=== PATIENT | female | born 1935 | race Caucasian/White ===

== ENCOUNTER → 2023-06-01 12:04 | Outpatient (REF) | payer OTHER, SELFPAY | LOC: PAVMRI 12:04 | PROVIDERS: ATTENDING PHYSICIAN Physician Assistant; FAMILY PHYSICIAN Family Medicine | DX: M54.16 Radiculopathy, lumbar region (principal) | CPT/HCPCS: 72148 ==

== ENCOUNTER 2025-01-15 14:55 | Inpatient (IN) | payer OTHER, SELFPAY ==
[2025-01-15] VITALS (18 sets, daily range): BP systolic 111–170; BP diastolic 50–90; PULSE 93; O2SAT 90; BMI 16.1
[2025-01-15] MEDS: NSS 500 IV (12:30)
[2025-01-15 12:43] LABS: Hematocrit 33.5 % (37.0-47.0); Hemoglobin 11.4 g/dL (12.0-16.0); Mean Corp Hgb Conc. 34.0 g/dL (33.0-37.0); Mean Corpuscular Volume 87.0 fL (81.0-99.0); Platelet Count 324 10^3/uL (130-400); Red Cell Dist. Width 14.1 % (11.5-14.5)
[2025-01-15 12:50] LABS: ALT (SGPT) 14 U/L (0-35); AST (SGOT) 25 U/L (14-36); Albumin 3.6 g/dl (3.5-5.0); Alkaline Phosphatase 111 U/L (38-126); Blood Urea Nitrogen 17 mg/dl (7-17); Calcium 8.8 mg/dl (8.4-10.2); Carbon Dioxide 30 mmol/L (22-30); Estimated Creatinine Clearance 35 ml/min; Glucose 114 mg/dl (70-99); Potassium 3.9 mmol/L (3.5-5.1); Sodium 135 mmol/L (135-145); Total Protein 6.7 g/dl (6.3-8.2); eGFR > 60.00
[2025-01-15 12:56] LABS: Chloride 98 mmol/L (98-107)
--- NOTE | 2025-01-15 13:07 | ED.GENMED ---
History of Present Illness
General
Chief Complaint: Breathing Problem
Source: patient and family (daughter at bedside)
Exam Limitations: none
Time Seen by Provider: 01/15/25 11:52
Nursing documentation reviewed up to this point in time: agreed with
History of Present Illness
History of Present Illness:
89 yo female with a medical history of emphysema, Alzheimers disease, malnutrition, anemia, hypertension, anxiety, and vitamin D deficiency. Presenting with a new onset cough persisting for seven days, alongside decreased appetite, and general
reluctance to engage in daily activities. Daughter reports that the patient had a cold a week ago, with noticeable coughing and a significant drop in food intake, saying, 'She had soup last night and maybe a spoonful'. The patient has refused to
take medication, despite normally being on mirtazapine. Additionally, the patient is experiencing fatigue and inactivity, although no weakness, chest pain, shortness of breath, abdominal pain, urinary issues, constipation, diarrhea, or vomiting were
noted.
Pt denies headache, SOB, CP, abd. pain, n/v/d/c.
Past History
Past History
ED Past Medical History: Cancer (Skin CA), HTN, Hypercholesterolemia and Other (Anemia)
ED Past Surgical History: Appendectomy, Gynecological (Hysterectomy) and Other (MOHS)
Social History
Tobacco: Former smoker
Alcohol: None
Personal:
Living: with family
Family History
Family History: Negative Diabetes, Hypertension or CAD
Review of Systems
Review of Systems
Allergies reviewed?: Yes
All Other Systems: ROS reviewed and negative except as documented in HPI and ROS
Phy Exam
Physical Exam
Physical Exam:
GENERAL: No acute distress. A&O x 2 to name and '[facility].' 'Twenty something' for year
CONSTITUTIONAL: Afebrile.
EYES: clear, conjunctivae normal
ENMT: moist mucus membranes, Pharynx nl
RESPIRATORY: Regular respirations, nonlabored, lungs clear, diminished BS, frequent junky cough noted.
CARDIOVASCULAR: Regular rate and rhythm, no murmurs, no rubs.
GI: Soft, nontender, normal BS
MUSCULOSKELETAL: Moves with ease. Well perfused. No edema.
SKIN: Warm, dry, pale
PSYCH: Depressed mood and affect. Well kept, following commands, answering
NEUROLOGIC: Awake, alert and oriented. No focal neurological deficits
Scores
Heart Failure Risk
Heart Failure Risk Score: Not Applicable
Course
Orders/Labs/Results
Orders:
Orders
01/15/25 12:14
0.9% Sodium Chloride 500 ml [Nss] 500 ml IV BOLUS
01/15/25 12:15
CR Chest - 2 Views Urgent
Comment:
Reason For Exam: cough
01/15/25 12:25
Complete Blood Count/With Diff Urgent
Comprehensive Metabolic Panel Urgent
NT-proBNP Urgent
Comment: ADD ON
Urinalysis Reflex To Culture Urgent
Date Specimen was Collected: 01/15/25
Time Specimen was Collected: 12:16
Urine Microscopic Reflex Cult Urgent
Urine Culture Urgent
SHONA Source: U
Specimen Description:
Date Specimen was Collected: 01/15/25
Time Specimen was Collected: 12:16
01/15/25 13:13
Case Management Consult ONCE
Case Management Consult: Discharge Planning
Comment: Pt daughter not comfortable taking her home
Physical Therapy Consult [Pt Eval And Treat] Urgent
Treatment: ambulate with her cane
Activity Level: As Tolerated
01/15/25 13:26
COVID-19 Antigen Urgent
Source: Nasal Swab
Influenza A+B Rapid Molecular Urgent
SHONA Source: Nasal Swab
Specimen Description:
01/15/25 13:50
Dexamethasone Sod Phosphate [Decadron] 10 mg IV NOW STA
01/15/25 13:51
Ipratropium/Albuterol Sulfate [Duoneb] 3 ml INH R NOW STA
01/15/25 13:53
Add On- LAB Urgent
Tests Added?: BNP
Abnormal Lab Results
01/15/25
12:25
WBC 12.6 H 10^3/uL
(4.8-10.8)
RBC 3.85 L 10^6/uL
(4.20-5.40)
Hgb 11.4 L g/dL
(12.0-16.0)
Hct 33.5 L %
(37.0-47.0)
Abs Immat Gran (auto) 0.2 H 10^3/uL
(0-0.05)
Absolute Neuts (auto) 9.5 H 10^3/uL
(1.4-6.5)
Absolute Monos (auto) 1.5 H 10^3/uL
(0.1-0.6)
Immature Gran % 1.3 H %
(0-0.5)
Lymphocytes % 11.6 L %
(20.5-51.1)
Monocytes % 11.7 H %
(1.7-9.3)
Glucose 114 H mg/dl
(70-99)
Urine Ketones 2+ A
(Negative)
Ur Occult Blood Reflex 3+ A
(Negative)
Urine RBC 3-6 A /HPF
(0-2)
Urine Bacteria (Reflex) Moderate A
(Negative)
Urine Albumin (Reflex) 3+ A
(Neg - Trace)
01/15/25 12:25
01/15/25 12:25
Vital Signs
Initial and Last Documented VS:
Initial Vital Signs
Temp Pulse Resp BP Pulse Ox
98.0 F 98 20 149/82 92
01/15/25 11:43 01/15/25 11:43 01/15/25 11:43 01/15/25 11:43 01/15/25 11:43
Last Documented Vital Signs
Temp Pulse Resp BP Pulse Ox
98.6 F 88 20 159/81 91
01/15/25 12:31 01/15/25 12:31 01/15/25 12:31 01/15/25 12:31 01/15/25 13:08
MDM/Problems Addressed
Differential Diagnosis Includes:
Exacerbation of COPD, pneumonia, viral URI, COVID, flu
Dehydration, malnutrition, depression, medication noncompliance, cognitive decline, UTI
MDM/Problems Addressed:
89 yo female with a medical history of emphysema, Alzheimers disease, malnutrition, anemia, hypertension, anxiety, and vitamin D deficiency. Presenting with a new onset cough persisting for seven days, alongside decreased appetite, and general
reluctance to engage in daily activities. Daughter reports that the patient had a cold a week ago, with noticeable coughing and a significant drop in food intake, saying, 'She had soup last night and maybe a spoonful'. The patient has refused to
take medication, despite normally being on mirtazapine. Additionally, the patient is experiencing fatigue and inactivity, although no weakness, chest pain, shortness of breath, abdominal pain, urinary issues, constipation, diarrhea, or vomiting were
noted.
Pt denies headache, SOB, CP, abd. pain, n/v/d/c.
CBC, CMP unremarkable save for mild leukocytosis
Chest x-ray: Radiology report read: IMPRESSION:
On the frontal view, lungs have decreased respiratory excursion compared to previous chest radiograph, with resultant crowding of the basilar bronchovascular markings, most likely from atelectasis. No convincing evidence for consolidation/pneumonia.
Upper lungs appear hyperlucent suggesting COPD/emphysema.
If there are persistent clinical symptoms, consideration for follow-up radiography.
1:15 PM: Daughter called me out to the hallway to see a 'I just cannot take care of her anymore... She will eat, she is refusing to take her medications, she does nothing.' Potential direct care specialist stress.
Daughter lives in [place] and travels back and forth with her mother due to the fact that her mother does not want to sell her house. So they come down here and stay for a time and then go back up to [place].
Pt PCP record reviewed on daughter's phone, pt is Full Code.
Daughter also states 'there's a lot of stuff going on in the family.'
Pt drinking apple juice, states 'I don't know' when asked why she isn't eating or taking her medicine, then 'I'm just not hungry.' Asked if she was depressed, didn't answer, asked if she wants to or is ready to states: 'Well, I didn't have
that in mind,' and laughs. Daughter at bedside during this conversation.
Case Management and P/T eval ordered
1:45 PM: PT in: Agrees patient is not safe to go home
Case management in to speak with patient and daughter.
Patient pulse ox drops to 87% at times, on 2 L nasal cannula oxygen she drops to 88% with any activity even sitting up to sit on the side of the bed.
Plan: Admit exacerbation COPD
Hospitalist notified of admission
*Pulse Oximetry
SaO2: 91
Oxygen Mode of Delivery: Room air
Patient hypoxic: yes
*Critical Care Note
Total Time (30-74mins, 75-104mins- exclusive of procedures): Not Applicable
ED Attending Note
-
Portions of this chart may have been created with voice recognition software.� Occasional wrong word or��sound alike� substitutions may have occurred due to the inherent limitations of voice recognition software.
Discharge Plan
Departure
Patient Disposition: Admit
Date of Disposition: 01/15/25
Time of Disposition: 13:53
Admit to: Med/Surg
Presentation/result/management discussed w/ accepting MD/DO: Hospitalist
Patient with high blood pressure during this ER visit?: No
Condition: Fair
Covid-19: Negative COVID-19
Discharge Problem:
Acute exacerbation of chronic obstructive pulmonary disease
Prescriptions:
No Action
Theragen Tablet
1 tab PO DAILY
mirtazapine 7.5 mg Tablet
3.75 mg PO DAILY
Referrals:
UNKNOWN - PT DOES,NOT KNOW [Unknown Provider]
Interventions
Interventions:
*Risk Screen - Suicide Last Done: 01/15/25 11:43
*General Assessment Last Done: 01/15/25 11:43
*Neglect/Abuse Screening Last Done: 01/15/25 12:31
*ED- Fall Risk Assessment Last Done: 01/15/25 12:31
*ED COVID-19 Vaccine History Last Done: 01/15/25 11:43
*ED Influenza Vaccine History Last Done: 01/15/25 11:43
ED- Cardiac Assessment Last Done: 01/15/25 12:31
ED- Pulmonary Assessment Last Done: 01/15/25 12:31
Discharge Date and Time
Print Language: KAZAKH
[2025-01-15 13:25] LABS: Nucleated Red Blood Cells % 0 %
[2025-01-15 13:33] LABS: Urine Character Clear (Clear)
--- NOTE | 2025-01-15 13:39 | EDRN ---
physical therapy currently at the pts bedside
[2025-01-15 13:43] LABS: Urine Urothelial Cell 0-2 /LPF (FEW)
[2025-01-15 13:48] LABS: COVID-19 Antigen Negative (Negative)
--- NOTE | 2025-01-15 13:50 | EDRN ---
case management currently at the pts bedside
--- NOTE | 2025-01-15 14:01 | CM ---
Addendum entered by Mag Sterling 01/15/25 14:11:
OBS Letter issued.
Original Note:
Initial assessment completed with daughter and pt at bedside.
Pt is an 89yr old female who came to the ER with her daughter for new onset cough and general loss of appetite and engagement in daily activities. Pt with dementia/Alzheimers.
Pt has home in [place], though lives primarily with her daughter in [place].
Pts home in [place] is [address] then an additional 2 steps to the main living area. Daughters home is a split level, though daughter says she can enter through the back that is 3ste and be on 1 floor.
Per daughter, at baseline, pt is indep with bed mobility and walking short distances with the use of a cane. Per daughters report, over the past week, daughter has had to provide increased assistance and supervision with all tasks.
Equipment pt has includes, cane, RW, shower chair, and commode.
PT eval conducted and recommendation is SNF. Daughter agreeable. Pt has been to [place] and daughter would like referral sent there as well as the facilities surrounding.
PCP; Milton Herrera
Pharm; [facility]
PLAN; SNF; Referrals Sent to [facility], and [facility]
--- NOTE | 2025-01-15 14:05 | HPS.HSE ---
Addendum entered and electronically signed by Jesse Delgado MD 01/15/25 15:24:
This is an addendum to the H&P written by Erendira Griffin on 01/15/2025. �Patient seen and examined independently with JUTE BAG CUTTING MACHINE OPERATOR.
89-year-old female past medical history of COPD, dementia, anemia of chronic disease, hypertension, presenting with cough and shortness of breath for 7 days. �Patient had cold a week ago with decreased p.o. Intake and hoarse voice. �Also fatigue.
�No chest pain or�abdominal pain or urinary issues or GI problems.
Vital signs show hypoxemia to 89%.
Labs show leukocytosis of 12.6. �Stable anemia of 11.4.
Chest x-ray shows atelectasis without consolidation or pneumonia. �Hyperlucent lungs suggesting COPD/emphysema. �COVID and flu negative.
Patient with acute COPD exacerbation secondary to viral URI. �DuoNefinesse, kelton.
Original Note:
Family Physician
-
Family Physician: NAOMI NEGRON,
Chief Complaint
-
Shortness of breath, hypoxia
History of Present Illness
89-year-old female with cough over the past 7 days decreased appetite. Her daughter reported she had a cold a week ago with cough and decreased oral intake along with refusing to take her medication. She reports she has had increased fatigue and
inactivity. She denies fever, chills, chest pain, palpitations, abdominal pain, nausea, vomiting, diarrhea, urinary symptoms. Her daughter Irene states she was 120.4 pounds on December 05 at her PCP according to note on her phone. She reports she
was seen there due to falling off the toilet and hitting her head. She is currently 99 pounds with a weight loss of 21 pounds in the past 5 weeks. She refuses to eat or take any of her medications likely due to progressive Alzheimer's. Her
daughter states she was due to leave for vacation on Sunday to [place] for 1 month she did have plans to take her mother with and drive however is interested in starting process of possible placement. She has past medical history of former smoker,
COPD/emphysema, Alzheimer's, HTN, HLD, anemia, anxiety, vitamin D deficiency, chronic cachexia, lumbar compression fracture L1, chronic ambulatory dysfunction
Medical History
Past Medical History
Past Medical History: Reports Other (Advanced dementia, chronic cachexia gastric ulcer hemorrhage 8 years ago secondary to aspirin, dementia, HTN, HLD, chronic anemia, chronic ambulatory dysfunction uses walker at baseline)
Past Surgical History: Reports Other (Appendectomy age 14, hysterectomy 50s, Mohs procedure)
Social History
Tobacco: Non-smoker
Alcohol: None
Drug: None
Personal: (January 2024)
Living: With Family (Daughter Irene in [place] and at patient's house in [place])
Employment: Retired
Family History
Family History: Unable to Obtain
Allergies / Home Medications
Allergies reflects when Allergies were last updated in [facility].
Home Medications with original date entered in [facility]
Allergy/Medication List:
Allergies
Allergy/AdvReac Type Severity Reaction Status Date / Time
No Known Allergies Allergy Verified 01/15/25 11:46
Home Medications
mirtazapine 7.5 mg tablet 3.75 mg PO HS Mental Health/Anxiety 01/15/25
therapeutic multivitamin 1 tab PO DAILY Supplement 01/15/25
Review of Systems
-
History Source: Patient and Family (Irene)
A 12 point ROS was completed and negative except as noted: Yes
Constitutional: Reports Fatigue; Denies Fever or Chills
EENT: Denies Sore Throat or Runny Nose
Respiratory: Reports Cough (Productive) and Trouble Breathing
Cardiac: Denies Chest Pain, Diaphoresis or Syncope
Abdomen/GI: Denies Abdominal Pain, Nausea, Vomiting, Diarrhea, Constipated or Bloody Stools
: Denies Dysuria or Frequency
Musculoskeletal: Denies Joint Pain or Edema
Skin: Denies Itching or Rash
Neurological: Reports Weakness; Denies Dizzy or Headache
Endocrine: Reports No Symptoms
Hematologic/Lymphatic: Reports No Symptoms
Psych: Reports Calm
Physical Exam
Vital Signs
Vital Signs
Temp Pulse Resp BP Pulse Ox
98.6 F 88 20 159/81 91
01/15/25 12:31 01/15/25 12:31 01/15/25 12:31 01/15/25 12:31 01/15/25 13:08
Physical Exam
General: No Fever or Chills
HEENT: NormoCephalic, Anicteric, Moist mucous membranes, PERRLA, Dennis Conjunctivae and No Ptosis
Respiratory: Wheezes (Expiratory bilateral); No Rales or Rhonchi
Cardiac: S1/S2 and Regular Rhythm; No Murmur, Rub, Gallop or Peripheral Edema
GI: Soft, Non Tender, Non Distended, Normal Bowel Sounds and No Hepatosplenomegaly
Rectal: Deferred by Provider
Genito-urinary: Deferred by me
Musculoskeletal: No Clubbing, No Cyanosis and No Edema
Skin: Warm and Dry; No Rash
Neuro: Awake, Alert, Oriented (To name and daughter only can follow commands) and No Sensory Deficits; No Slurred Speech, Facial Droop, Tremors or Sedated
Psych: Calm
Laboratory Results
-
01/15/25 12:25
01/15/25 12:25
Laboratory Results
Total Bilirubin 0.8 mg/dl (0.2-1.3) 01/15/25 12:25
AST 25 U/L (14-36) 01/15/25 12:25
ALT 14 U/L (0-35) 01/15/25 12:25
Alkaline Phosphatase 111 U/L (38-126) 01/15/25 12:25
Impression/Plan
-
Impression/plan:
Admit to MedSurg
#Acute on chronic COPD exacerbation following URI
Acute hypoxic respiratory insufficiency secondary to COPD exacerbation
89%-90 2 L nasal cannula
COVID/influenza negative
- IV Decadron 10 mg now, continue Decadron 4 mg every 8 hours
-DuoNebs scheduled and as needed
-Will need walking pulse ox to determine if needs O2 at home
-PT/OT/case management consult�daughter interested in starting process of possible NH placement
#Progressive Alzheimer's with Weight loss
Weight loss of 21 pounds in past 5 weeks refusal to eat or take meds
PCP has tried prescribing Megace but patient refuses medications
- Dietary consult
#Anxiety
Daughter gives 3.75 mg of mirtazapine in a.m. to help with repetitive speaking/obsessiveness
#HTN�benign
BP 159/81
No current medication
#HLD
- Patient refuses meds
#History of lung compression fracture 2022
#Chronic ambulatory dysfunction
Consult PT/ot
#History of vitamin D deficiency
DVT prophylaxis
Subcu heparin
DNR per daughter Irene
[2025-01-15] MEDS: DECADRON 10 MG IV (14:17)
[2025-01-15] MEDS: DUONEB 3 ML INH (14:18)
--- NOTE | 2025-01-15 16:57 | EDRN ---
this RN called the receiving nurse and notified them that paper report was going to be tubed up
--- NOTE | 2025-01-15 17:10 | EDRN ---
this RN noticed that the pts p02 on 2L NC was dipping to the 80's then to 75%, this RN entered the pts room and notified Erendira Griffin FLIGHT TECHNICIAN who came to the pts bedside, this RN titrated 02 up to 6L NC, the pt was sleeping and was seen to have left
sided facial droop, an inpatient stroke alert was called and Dr. Delgado came to the bedside as well, left sided facial droop was the only deficit noted, pt taken to CT by this RN
[2025-01-15 17:23] LABS: Glucose - Point of Care 140 mg/dl (70-99)
--- NOTE | 2025-01-15 17:49 | EDRN ---
respiratory currently at the pts bedside drawing ABG, the pt is currently still on 6L NC and Sp02 is 98%, no c/o SOB
[2025-01-15 17:57] LABS: B.E. 5.1 mmol/L; HCO3 29.0 mmol/L (21-28); O2 Saturation % 99.7 % (94-98); PCO2 39 mmHg (32-35); PO2 111 mmHg (83-108)
--- NOTE | 2025-01-15 18:06 | W.PN.UPDATE ---
Update Note
Progress Note Update
Acute hypoxia concern for CO2 retention/possible underlying sleep apnea
left-sided facial droop concern for possible TIA/CVA versus hypoxia�self resolved
At 1711 patient noted to be hypoxic 75% with good pleth wave on monitor when found in room appeared to have left facial droop was dizzy tongue stuck at midline
O2 6 L nasal cannula was applied
-stroke alert was called
- Symptoms resolved within 2 minutes
- CT head negative
- ABG -pH 7.48 CO2 39, O2 111, CO 39 on 6 L nasal cannula
- Will decrease nasal cannula to 2 L maintain O2 sat 90%
- Will use a CPAP setting of 5 when patient is sleeping as suspect possible underlying sleep apnea
--- NOTE | 2025-01-15 18:33 | EDRN ---
per Erendira Griffin SUBSTITUTE BUS DRIVER 02 was decreased from 6L to 2L NC, Sp02 96%, admission order changed from Med surg to Tele, will await for a bed
[2025-01-15] MEDS: HEPARIN 5000 UNITS SC (20:22)
--- NOTE | 2025-01-15 20:54 | PTCARENOTE ---
patient arrived from ED via stretcher. patient pulled over into bed by staff. patient AOx1, oriented to self. tele monitor placed. assessment completed. oriented patient to room. bed alarm in place. DNR bracelet placed. POC ongoing.
[2025-01-15] MEDS: DECADRON 4 MG IV (21:18)
[2025-01-15] MEDS: REMERON 3.75 MG PO (21:19)
[2025-01-15] MEDS: DUONEB INH ×2 (21:35→21:38)
[2025-01-16] VITALS (9 sets, daily range): BP systolic 104–132; BP diastolic 58–71; PULSE 107–113; O2SAT 96; BMI 18.2
--- NOTE | 2025-01-16 00:30 | PTCARENOTE ---
respiratory rate 26 at 2300 VS. LIYAH Low notified. no new orders received. POC ongoing.
[2025-01-16] MEDS: DECADRON 4 MG IV ×3 (05:25→20:34)
[2025-01-16 06:36] LABS: Hematocrit 32.2 % (37.0-47.0); Hemoglobin 10.9 g/dL (12.0-16.0); Mean Corp Hgb Conc. 33.9 g/dL (33.0-37.0); Mean Corpuscular Volume 87.5 fL (81.0-99.0); Nucleated Red Blood Cells % 0 %; Platelet Count 341 10^3/uL (130-400); Red Cell Dist. Width 14.1 % (11.5-14.5)
[2025-01-16 07:12] LABS: ALT (SGPT) 13 U/L (0-35); AST (SGOT) 21 U/L (14-36); Albumin 3.4 g/dl (3.5-5.0); Alkaline Phosphatase 116 U/L (38-126); Blood Urea Nitrogen 21 mg/dl (7-17); Calcium 9.0 mg/dl (8.4-10.2); Carbon Dioxide 27 mmol/L (22-30); Chloride 103 mmol/L (98-107); Estimated Creatinine Clearance 39 ml/min; Glucose 129 mg/dl (70-99); Potassium 4.1 mmol/L (3.5-5.1); Sodium 138 mmol/L (135-145); Total Protein 6.4 g/dl (6.3-8.2); eGFR > 60.00
[2025-01-16] MEDS: DUONEB 3 ML INH ×3 (07:15→14:54)
[2025-01-16] MEDS: THERAGRAN 1 TABLET PO (08:26)
[2025-01-16] MEDS: HEPARIN 5000 UNITS SC ×2 (08:26→20:35)
[2025-01-16] MEDS: TYLENOL 650 MG PO (08:26)
--- NOTE | 2025-01-16 09:53 | W.PN.HOSP.TC ---
Addendum entered and electronically signed by Ty Fernandez MD 01/16/25 13:41:
Attending�addendum:
I saw and evaluated the patient independently. I reviewed and discussed the resident�s note and agree with findings and plan as documented in the resident�s note.� patient seen and examined at bedside, later spoke with daughter at bedside, patient
admitted yesterday with concern of COPD exacerbation, recent upper respiratory tract infection.
Physical�exam:
GENERAL : Patient is awake, but not fully oriented.
HEENT: Nonicteric sclerae, PERRLA, EOMI. Oropharynx clear. Moist mucous membranes. Conjunctivae appear well perfused.
CHEST: Chest wall is nontender.
HEART: Regular rate and rhythm without murmurs.
LUNGS: Bilateral rales
ABDOMEN: Soft, positive bowel sounds, nontender, no organomegaly.
RECTAL: Deferred.
MUSCLES/EXTREMITIES: No abnormal range of motion, no swelling.SKIN: No rash, no excessive bruising, petechiae, or purpura.
NEUROLOGIC: Cranial nerves II-XII intact without motor/sensory deficit.
�
Assessment/plan:
Acute on chronic COPD exacerbation.
Rule out underlying pneumonia.
CT chest pending.
Continue DuoNebs and dexamethasone
For home oxygen before discharge
Alzheimer dementia
Mild leukocytosis, rule out underlying sepsis
Ambulatory dysfunction.
PT/OT,
CODE STATUS: DNR
Family communication: Discussed with daughter at bedside
Disposition: CT chest
�
Total time spent on today�s encounter was 55 minutes which included time spent in counseling the patient/family regarding diagnosis and treatment plan as listed above, goals of care, and symptom management. Case was discussed with nursing staff,
specialists, and care coordinators/case management. All labs and imaging personally reviewed by me. Remainder the time spent in detailed review of previous records, lab data, imaging, and other medical provider documentation.
Original Note:
Today's Communication/Plan
-
- Monitor CBC for mild leukocytosis
- PT/OT/case management
- Continue DuoNebs, dexamethasone
Assessment / Plan
Assessment / Plan
Patient is an 89-year-old female who presented with shortness of breath and cough duration of 7 days with decreased p.o. intake
#Acute on chronic exacerbation of COPD
- In setting of recent URI as per daughter
- Requiring 2 L nasal cannula
- COVID and flu negative
- DuoNebs as needed
- Dexamethasone
#Progressive Alzheimer's associated with weight loss
- Patient lost 21 pounds in 5 weeks
- Patient refusing home p.o. medications per daughter
- Dietary consult
#Mild leukocytosis
- WBC 12.6 yesterday, 11.8 today
- Chest x-ray in ED showing decreased respiratory exertion compared to previous chest radiograph with resultant crowding of the bibasilar parenchymal vascular markings most likely from atelectasis, and upper lungs appear hyperlucent suggesting
COPD/emphysema
- Nursing reported patient having afebrile chills over night
- Continue to monitor CBC
#Ambulatory dysfunction
-PT/OT consult
#Anxiety
- Continue mirtazapine
#Hypertension
- Currently not on medication at home
- BP 119/66 this morning
#Hyperlipidemia
- Currently not on medication at home
Anticipated Discharge: 24 - 48 hours
Subjective/Interval History
-
Date of Service: January 16, 2025
Patient seen this morning at bedside. Patient breakfast in front of her house trying to drink her coffee with a spoon. Patient stated that she was doing fine, but could not remember why she was in the hospital. When asking review of systems,
patient would just state that she did not know. She currently denied any shortness of breath or chest pain. Patient denies any pain.
Objective Data
-
Labs:
Laboratory Results
01/16/25
06:16
WBC 11.8 H
Hgb 10.9 L
Hct 32.2 L
Plt Count 341
Sodium 138
Potassium 4.1
Chloride 103
Carbon Dioxide 27
BUN 21 H
Creatinine 0.8
Glucose 129 H
Calcium 9.0
Total Bilirubin 0.4
AST 21
ALT 13
Alkaline Phosphatase 116
Vital Signs:
Vital Signs
Temp Pulse Resp BP Pulse Ox
97.8 F 64 18 119/66 98
01/16/25 07:13 01/16/25 07:16 01/16/25 07:16 01/16/25 07:13 01/16/25 07:16
I&O
01/15/25 01/16/25 01/17/25
06:59 06:59 06:59
Output Total 1000 / 1000
Balance -1000 / -1000
Review of Systems
-
Unable to obtain full review of systems at this time due to: Dementia
Respiratory: Reports No Symptoms
Cardiac: Reports No Symptoms
Physical Exam
-
General: No Apparent Distress
Respiratory: Wheezes (expiratory)
Cardiac: Regular Rhythm
GI: Soft, Nontender and Nondistended
Skin: Warm and Dry
Neuro: Awake, Alert and Oriented
Psych: Calm
--- NOTE | 2025-01-16 10:00 | PTCARENOTE ---
Pt displayed increased generalized tremors and stated, 'I am so cold'. Pt covered in blankets. No elevated temperature, temp=98.5. made aware.
--- NOTE | 2025-01-16 15:49 | PN.CDI ---
CDI
- -
CDI:
Physician Documentation Request
Admit Date: 01/15/25 14:55
Dear Doctor Rebecca/Resident ,
Please review the following and provide your response in the progress notes.
Clinical Indicators:
Pt admitted with COPD exacerbation
Progress note 01/16, ' #Progressive Alzheimer's associated with weight loss Patient lost 21 pounds in 5 weeksPatient refusing home p.o. medications per daughter...'
Nutrition consult 01/16, ' Per admission list pt with 14-23 lb weight loss (score 5). Records show weight of 112 lbs 14.4 oz on 01-16 (BMI 18.2-underwt); per MD notes from family pt was 120.4 lbs on December 05, 2024 MD office (would reflect a loss
of 8 lbs, 6.6% wt change, ~5.5 weeks). Pt in chair after lunch today during RD visit; tray observed with chocolate pudding consumed. Would encourage and assist pt if needed to try meals, snacks daily as tolerated. Estimated needs: 1272 calories (25
kcal/kg/112 lbs/COPD), 61 gms protein (1.2 gm/kg/COPD). Pt observed to have appearance of moderate depression at temples, orbital, clavicle and ribs. Per family to MD, pt with a 'significant drop in food intake' prior to admission. RD to add
fortified pudding at lunch and dinner via [facility] menu. Pt currently meeting criteria for moderate protein-calorie malnutrition as per ASPEN/AND guidelines, chronic illness. Follow-up planned per level of care during hospitalization.'
Based on the above information and your assessment, which of the following most accurately represents the patient's nutritional status?
Moderate protein calorie Malnutrition
Other (please specify)
[place] Criteria (ACP Hospitalist 2017)
2 or more criteria must be present for either
non severe or severe malnutrition
Note that the criteria differs related to the
presence of an acute or chronic illness
Acute Illness Chronic Illness
Energy Intake Non Severe: <75% for >7 days Non Severe: <75% for >1 month
Severe: <50% for >5 days Severe: <75% for >1 month
Weight Loss Non Severe: 1-2% over 1 week Non Severe: 5% over 1 month
5% over 1 month 7.5% over 3 months
7.5% over 3 months 10% over 6 months
1 year N/A 20% over 1 year
Severe: >2% over 1 week Severe: >5% over 1 month
>5% over 1 month >7.5% over 3 months
>7.5% over 3 months >10% over 6 months
1 year N/A >20% over 1 year
Body Fat Non Severe: Mild Decrease Non Severe: Mild Loss
Severe: Moderate Decrease Severe: Severe Loss
Muscle Mass Non Severe: Mild Decrease Non Severe: Mild Loss
Severe: Moderate Decrease Severe: Severe Loss
Fluid Accumulation Non Severe: Mild Accumulation Non Severe: Mild Accumulation
Severe: Moderate to severe Severe: Moderate to severe
accumulation accumulation
Reduced [employer] Strength Non Severe: N/A Non Severe: N/A
Severe: Measurably reduced Severe: Measurably reduced
Use of terms such as suspected, likely, concern for, or probable (associated with a specific diagnosis that is being evaluated, monitored, or treated as if it exists) are acceptable and can be coded in the inpatient setting, when documented at the
time of discharge.
Thank you,
Peri Rothman RN
CDI Specialist
[place] [facility]
Please use your independent medical judgment in providing your response.
--- NOTE | 2025-01-16 16:41 | PTCARENOTE ---
At 15:40, environmental monitoring specialist alarmed, pt tachycardic, nf=554's-140's. Pt sitting in chair, anxious, otherwise asymptomatic. Blood pressure rechecked at 16:00, 115/64 hr 122. ECG ordered and obtained, displayed sinus tachycardia, HR 122, photo of ecg
sent to via tiger text. informed that HR on environmental monitoring specialist is continuing to display HR 110's-120's. New order provided, see MAR.
--- NOTE | 2025-01-16 17:35 | PTCARENOTE ---
HR continues to be 100's-110's. made aware.
--- NOTE | 2025-01-16 18:15 | PTCARENOTE ---
HR 110's, resident made aware, resident at bedside. Pt asymptomatic. BP stable.
[2025-01-16] MEDS: REMERON 3.75 MG PO (20:36)
[2025-01-16] MEDS: ROCEPHIN 1000 MG IV (21:51)
[2025-01-16] MEDS: VIBRAMYCIN 100 MG PO (21:51)
[2025-01-16] MEDS: STERILE WATER FOR INJECTION 10 ML IV (21:52)
[2025-01-17 03:49] VITALS: BP 113/63
[2025-01-17 04:52] VITALS: BMI 18.3
[2025-01-17] MEDS: DECADRON 4 MG IV ×3 (05:56→21:31)
[2025-01-17 07:00] VITALS: BP 102/67
[2025-01-17 07:14] LABS: ALT (SGPT) 14 U/L (0-35); AST (SGOT) 22 U/L (14-36); Albumin 3.1 g/dl (3.5-5.0); Alkaline Phosphatase 110 U/L (38-126); Blood Urea Nitrogen 48 mg/dl (7-17); Calcium 8.9 mg/dl (8.4-10.2); Carbon Dioxide 28 mmol/L (22-30); Chloride 103 mmol/L (98-107); Estimated Creatinine Clearance 24 ml/min; Glucose 141 mg/dl (70-99); Potassium 3.8 mmol/L (3.5-5.1); Sodium 137 mmol/L (135-145); Total Protein 5.9 g/dl (6.3-8.2); eGFR 39.55
[2025-01-17 07:40] LABS: Hematocrit 29.2 % (37.0-47.0); Hemoglobin 9.9 g/dL (12.0-16.0); Mean Corp Hgb Conc. 33.9 g/dL (33.0-37.0); Mean Corpuscular Volume 88.0 fL (81.0-99.0); Platelet Count 390 10^3/uL (130-400); Red Cell Dist. Width 14.3 % (11.5-14.5)
[2025-01-17] MEDS: HEPARIN 5000 UNITS SC ×2 (08:30→20:31)
[2025-01-17] MEDS: VIBRAMYCIN 100 MG PO ×2 (08:31→20:32)
[2025-01-17] MEDS: THERAGRAN 1 TABLET PO (08:31)
[2025-01-17 08:42] LABS: Absolute Neutrophils -Man Diff 21.2 10^3/uL (1.4-6.5); Anisocytosis Slight; Normal RBC Morphology No; Platelets Checked Yes
[2025-01-17 08:43] LABS: Ovalocytes 1+; Polychromasia 1+; Target Cells 1+; Total Cells Counted 100
--- NOTE | 2025-01-17 09:41 | W.PN.HOSP.TC ---
Addendum entered and electronically signed by Ty Fernandez MD 01/17/25 12:41:
Moderate protein calorie Malnutrition
Addendum entered and electronically signed by Ty Fernandez MD 01/17/25 11:41:
Attending�addendum:
I saw and evaluated the patient independently. I reviewed and discussed the resident�s note and agree with findings and plan as documented in the resident�s note.� patient seen and examined at bedside, shortness of breath improved.
CT scan shows pneumonitis/bronchitis.
Started on IV antibiotics.
Worsening creatinine, started on IVF
Physical�exam:
GENERAL : Patient is awake, but not fully oriented.
HEENT: Nonicteric sclerae, PERRLA, EOMI. Oropharynx clear. Moist mucous membranes. Conjunctivae appear well perfused.
CHEST: Chest wall is nontender.
HEART: Regular rate and rhythm without murmurs.
LUNGS: Bilateral rales
ABDOMEN: Soft, positive bowel sounds, nontender, no organomegaly.
RECTAL: Deferred.
MUSCLES/EXTREMITIES: No abnormal range of motion, no swelling.SKIN: No rash, no excessive bruising, petechiae, or purpura.
NEUROLOGIC: Cranial nerves II-XII intact without motor/sensory deficit.
�
Assessment/plan:
Acute on chronic COPD exacerbation.
Pneumonitis/bronchitis.
Started on Rocephin/Doxy psych
Continue DuoNebs and dexamethasone
Ambulatory pulse ox on exertion.
Sepsis with organ dysfunction.
Secondary to bronchitis.
Organ dysfunction in form of acute kidney injury.
Continue antibiotic
Acute kidney injury.
Baseline 0.8.
Creatinine 1.3.
IV fluid.
Avoid nephrotoxic
Alzheimer dementia
at baseline
Ambulatory dysfunction.
PT/OT,
CODE STATUS: DNR
Family communication: Discussed with daughter at bedside
Disposition: Ambulatory pulse ox on exertion.
IVF
�
Total time spent on today�s encounter was 55 minutes which included time spent in counseling the patient/family regarding diagnosis and treatment plan as listed above, goals of care, and symptom management. Case was discussed with nursing staff,
specialists, and care coordinators/case management. All labs and imaging personally reviewed by me. Remainder the time spent in detailed review of previous records, lab data, imaging, and other medical provider documentation
Original Note:
Today's Communication/Plan
-
- Continue antibiotics
- Trend WBC
- O2 on exertion today
- Continue DuoNebs as needed and dexamethasone
- Cr 1.3 from 0.8, will start IV fluids
Assessment / Plan
Assessment / Plan
Patient is an 89-year-old female who presented with shortness of breath and cough duration of 7 days with decreased p.o. intake
#Acute on chronic exacerbation of COPD
- In setting of recent URI as per daughter
- Requiring 2 L nasal cannula
- COVID and flu negative
- DuoNebs changed to as needed
- Dexamethasone
# Progressive Alzheimer's associated with weight loss
# Moderate protein calorie Malnutrition
- Patient lost 21 pounds in 5 weeks
- Patient refusing home p.o. medications per daughter
- Dietary consult
#Mild to moderate leukocytosis, worsening
- WBC 11.8 yesterday, 25.0 today
- In setting of steroids
- Chest x-ray in ED indicating findings of atelectasis and suggestive of COPD/emphysema
- Chest CT 01/08 indicating findings of areas of nodular opacity scattered to the lungs, greatest in the right upper lobe. Airway pneumonitis, bronchitis
- Started patient on Rocephin and doxycycline
- Continue to monitor CBC
#Acute kidney injury
- Cr 1.3 today, 0.8 on admission
- Will start fluids, normal saline
#Ambulatory dysfunction
-PT/OT consult
#Anxiety
- Continue mirtazapine
#Hypertension
- Currently not on medication at home
- BP 119/66 this morning
#Hyperlipidemia
- Currently not on medication at home
Anticipated Discharge: 24 - 48 hours
Subjective/Interval History
-
Date of Service: January 17, 2025
Patient seen at the bedside today, drinking coffee. Patient states that she 'thinks' she feels fine, and denies all review of systems. Patient seen more confused this morning, unsure where she was.
Objective Data
-
Labs:
Laboratory Results
01/17/25
06:24
WBC 25.0 H
Hgb 9.9 L
Hct 29.2 L
Plt Count 390
Sodium 137
Potassium 3.8
Chloride 103
Carbon Dioxide 28
BUN 48 H
Creatinine 1.3 H
Glucose 141 H
Calcium 8.9
Total Bilirubin 0.2
AST 22
ALT 14
Alkaline Phosphatase 110
Vital Signs:
Vital Signs
Temp Pulse Resp BP Pulse Ox
98.4 F 71 18 102/67 99
01/17/25 07:00 01/17/25 07:00 01/17/25 07:00 01/17/25 07:00 01/17/25 07:00
I&O
01/16/25 01/17/25 01/18/25
06:59 06:59 06:59
Intake Total 930 / 930
Output Total 1000 / 1000
Balance -1000 / -1000 930 / 930
Review of Systems
-
Unable to obtain full review of systems at this time due to: Dementia
Physical Exam
-
General: No Apparent Distress and Comfortable
HEENT: Moist Mucous Membranes
Respiratory: Clear to Auscultation
Cardiac: Regular Rhythm
GI: Soft, Nontender and Nondistended
Musculoskeletal: No Edema
Skin: Warm and Dry
Neuro: Awake and Alert
Psych: Calm and Confused
[2025-01-17 11:05] VITALS: BP 137/76
[2025-01-17] MEDS: NSS 1000 IV (14:05)
[2025-01-17 15:00] VITALS: BP 150/81
[2025-01-17 19:50] VITALS: BP 130/80
[2025-01-17] MEDS: STERILE WATER FOR INJECTION 10 ML IV (21:28)
[2025-01-17] MEDS: ROCEPHIN 1000 MG IV (21:28)
[2025-01-17] MEDS: REMERON 3.75 MG PO (21:40)
[2025-01-17 23:21] VITALS: BP 145/79
[2025-01-18 03:07] VITALS: BP 136/77
[2025-01-18 03:16] VITALS: BMI 16.6
[2025-01-18] MEDS: DECADRON 4 MG IV (06:17)
[2025-01-18 07:00] VITALS: BP 160/80
[2025-01-18 07:01] LABS: Hematocrit 32.1 % (37.0-47.0); Hemoglobin 10.9 g/dL (12.0-16.0); Mean Corp Hgb Conc. 34.0 g/dL (33.0-37.0); Mean Corpuscular Volume 88.2 fL (81.0-99.0); Platelet Count 418 10^3/uL (130-400); Red Cell Dist. Width 14.4 % (11.5-14.5)
[2025-01-18 07:15] LABS: Blood Urea Nitrogen 49 mg/dl (7-17); Calcium 9.0 mg/dl (8.4-10.2); Carbon Dioxide 27 mmol/L (22-30); Chloride 106 mmol/L (98-107); Estimated Creatinine Clearance 29 ml/min; Glucose 113 mg/dl (70-99); Potassium 4.3 mmol/L (3.5-5.1); Sodium 139 mmol/L (135-145); eGFR 54.19
[2025-01-18] MEDS: THERAGRAN 1 TABLET PO (07:49)
[2025-01-18] MEDS: VIBRAMYCIN 100 MG PO (07:49)
[2025-01-18] MEDS: HEPARIN 5000 UNITS SC (07:50)
[2025-01-18] MEDS: NSS 1000 IV (07:51)
[2025-01-18 08:26] LABS: Nucleated Red Blood Cells % 0 %
--- NOTE | 2025-01-18 09:35 | W.PN.HOSP.TC ---
Addendum entered and electronically signed by Misbah Bermudez MD 01/18/25 13:25:
Attending�addendum:
I saw and evaluated the patient independently. I reviewed and discussed the resident�s note and agree with findings and plan as documented in the resident�s note.� patient seen and examined at bedside, shortness of breath improved. Overall feels
tired.
Physical�exam:
GENERAL : Patient is awake, but not fully oriented.
HEENT: Nonicteric sclerae, PERRLA, EOMI. Oropharynx clear. Moist mucous membranes. Conjunctivae appear well perfused.
CHEST: Chest wall is nontender.
HEART: Regular rate and rhythm without murmurs.
LUNGS: Bilateral rhonchi, no wheezes appreciated today.
ABDOMEN: Soft, positive bowel sounds, nontender, no organomegaly.
RECTAL: Deferred.
MUSCLES/EXTREMITIES: No abnormal range of motion, no swelling.SKIN: No rash, no excessive bruising, petechiae, or purpura.
NEUROLOGIC: Cranial nerves II-XII intact without motor/sensory deficit.
�
Assessment/plan:
Acute on chronic COPD exacerbation.
Pneumonitis/bronchitis.
Started on Rocephin/Doxy and can switch to cefdinir and doxycycline upon discharge today
Continue DuoNebs and dexamethasone--> can switch IV dexamethasone to oral steroids
Ambulatory pulse ox on exertion shows no need for home oxygen.
Sepsis with organ dysfunction.
Secondary to bronchitis.
Organ dysfunction in form of acute kidney injury.
Continue antibiotic and can switch to cefdinir and doxycycline upon discharge today
Acute kidney injury.
Baseline 0.8.
Creatinine 1.3--> creatinine down to 1 today with fluids
Stop IV fluid.
Avoid nephrotoxic
Alzheimer dementia
at baseline
Ambulatory dysfunction.
PT/OT,
CODE STATUS: DNR
Disposition: PT recommends home health. Plan to discharge home with home health today.
Original Note:
Today's Communication/Plan
-
- Possible discharge today
- PT/OT to reassess and provide recommendation
- Will discontinue dexamethasone and start p.o. taper
Assessment / Plan
Assessment / Plan
Patient is an 89-year-old female who presented with shortness of breath and cough duration of 7 days with decreased p.o. intake
#Acute on chronic exacerbation of COPD
- In setting of recent URI as per daughter
- COVID and flu negative
- DuoNebs changed to as needed
- Dexamethasone, will discontinue today after morning dose.
- Start p.o. steroids tonight with taper
- Ambulatory O2 assessment: SpO2 varying 97 to 92% on room air. No need for supplemental O2.
# Progressive Alzheimer's associated with weight loss
# Moderate protein calorie Malnutrition
- Patient lost 21 pounds in 5 weeks
- Patient refusing home p.o. medications per daughter
- Dietary consulted
#Mild to moderate leukocytosis, improving
- WBC 22.9 today
- In setting of steroids
- Chest x-ray in ED indicating findings of atelectasis and suggestive of COPD/emphysema
- Chest CT 01/08 indicating findings of areas of nodular opacity scattered to the lungs, greatest in the right upper lobe. Airway pneumonitis, bronchitis
- Patient on Rocephin and doxycycline
- Continue to monitor CBC
#Acute kidney injury
- Cr improved to 1.0 today, 0.8 on admission
- IV fluids discontinued
#Ambulatory dysfunction
- PT/OT consult, will reassess before discharge
#Anxiety
- Continue mirtazapine
#Hypertension
- Currently not on medication at home
- BP 119/66 this morning
#Hyperlipidemia
- Currently not on medication at home
Anticipated Discharge: Today
Subjective/Interval History
-
Date of Service: January 18, 2025
Patient seen this morning at the bedside while she was eating breakfast. Patient denies any new complaints this morning, but when asked review of systems, she says she 'does not know 'or 'cannot tell'.
Objective Data
-
Labs:
Laboratory Results
01/18/25
06:29
WBC 22.9 H
Hgb 10.9 L
Hct 32.1 L
Plt Count 418 H
Sodium 139
Potassium 4.3
Chloride 106
Carbon Dioxide 27
BUN 49 H
Creatinine 1.0
Glucose 113 H
Calcium 9.0
Vital Signs:
Vital Signs
Temp Pulse Resp BP Pulse Ox
97.7 F 74 18 160/80 97
01/18/25 07:00 01/18/25 07:00 01/18/25 07:00 01/18/25 07:00 01/18/25 07:00
I&O
01/17/25 01/18/25 01/19/25
06:59 06:59 06:59
Intake Total 930 / 930 780 / 780
Balance 930 / 930 780 / 780
Review of Systems
-
Unable to obtain full review of systems at this time due to: Dementia
Physical Exam
-
General: Comfortable and Appears Chronically Ill
HEENT: Moist Mucous Membranes
Respiratory: Clear to Auscultation
Cardiac: Regular Rhythm
GI: Soft, Nontender and Nondistended
Musculoskeletal: No Edema
Skin: Warm and Dry
Neuro: Awake and Alert
Psych: Calm
--- NOTE | 2025-01-18 10:30 | CM ---
Addendum entered by Joanna Hernandez 01/18/25 12:02:
Daughter plans on taking patient home, back to [place].
Original Note:
Chart reviewed and last PT note is from Tuesday 01/16 recommendation is home v's skilled, bottle caser will need final decision from Physical therapy on recommendation for patient, skilled referrals were sent.
Plan; Await updated recommendation from physical therapy.
[2025-01-18 11:05] VITALS: BP 153/85
[2025-01-18 12:12] VITALS: BP 160/82; PULSE 69; O2SAT 95
--- NOTE | 2025-01-18 13:48 | W.DCSUMMARY ---
Addendum entered and electronically signed by Misbah Bermudez MD 01/18/25 14:10:
Attending�addendum:
I saw and evaluated the patient independently. I reviewed and discussed the resident�s note and agree with findings and plan as documented in the resident�s note.� patient seen and examined at bedside. Patient with COPD exacerbation and pneumonia.
Improving and ready for discharge. Plan to continue a tapering course of oral steroids and antibiotics as outpatient. Please see rest as outlined by the resident.
Original Note:
Discharge Summary
Discharge Data
Date of Admission: 01/15/25
Date of Discharge: 01/18/25
-
Pending Results: No
Hospital Course
Primary diagnosis: Acute on chronic COPD exacerbation
Secondary diagnoses: Acute kidney injury, dementia, ambulatory dysfunction
Hospital course:
Patient is an 89-year-old female with a H significant for COPD, dementia, anemia of chronic disease, anxiety who presented to [facility] with shortness of breath, fatigue and poor p.o. intake after 7 days of a URI per patient's daughter. In the ED,
patient's blood work was remarkable for a WBC of 12.6 and stable anemia with a Hgb at 11.4. Vital signs remarkable for hypoxemia to 89%. Patient had a chest x-ray which showed atelectasis without consolidation or pneumonia. Patient was admitted
for acute COPD exacerbation secondary to viral URI, started on scheduled DuoNebs and dexamethasone.
On the first night of admission, patient had stroke alert called. She was noted to be hypoxic 75% and appeared to have a left facial droop and was dizzy. Symptoms resolved within [address] head was completed and negative. ABG indicated a pH
of 7.48, CO2 39, O2 111, CO2 39. Patient continued to have normal neuro exam for the remainder of the admission and did not experience any similar episodes again.
During admission, we ordered a CT chest which showed pneumonitis and bronchitis. Patient was started on IV antibiotics: Rocephin and Doxy. Patient's shortness of breath, fatigue improved with antibiotics and steroids/DuoNebs. At discharge we
decided to continue antibiotics for 4 more days with doxycycline and cefdinir, as well as continuing the steroids with the prednisone p.o. taper.
Over the course of admission patient also experienced an SUNNY. Baseline creatinine on admission was 0.8 and increased to 1.3 on day 2 of admission. We started IV fluids and creatinine decreased to 1.0 the following day. Throughout admission
patient was seen by PT/OT who ultimately recommended her discharge home with daughter and with home PT/OT. Prescription provided.
Patient will be discharged home today into the care of her daughter.
Imaging:
01/15/2025 chest x-ray
IMPRESSION:
On the frontal view, lungs have decreased respiratory excursion compared to previous chest radiograph, with resultant crowding of the basilar bronchovascular markings, most likely from atelectasis. No convincing evidence for consolidation/pneumonia.
Upper lungs appear hyperlucent suggesting COPD/emphysema.
If there are persistent clinical symptoms, consideration for follow-up radiography.
01/15/[address]
IMPRESSION:
No evidence of acute intracranial abnormality.
01/16/[address]
IMPRESSION:
Areas of branching small nodular opacity scattered throughout the lungs, greatest in the right upper lobe. Also in the right upper lobe, patchy areas of groundglass opacity. Findings likely represent small airway pneumonitis.
No dense area of consolidation is identified.
Findings suggestive of bronchitis within the right upper lobe.
Mild bronchiectasis within both upper lobes.
Minimal pleural fluid bilaterally.
Moderate to severe calcification of the aortic valve. Please correlate with any clinical signs or symptoms that suggest clinically significant aortic stenosis.
Moderate hiatal hernia, extending into the medial aspect of the left lower hemithorax.
Discharge Plan
-
Patient Disposition: Home (Routine Discharge)
Discharge Diagnosis/Procedures: Acute on chronic chronic obstructive pulmonary disorder exacerbation, pneumonitis, bronchitis
Condition: Fair
Diet: As tolerated
Activity: No restrictions
Driving Restrictions: As prior to admission
Bathing Restrictions: None
Other Services: PT
Activity Restrictions/Additional Instructions:
Please continue antibiotics for next 4 days. Last dose 01/22/2025
Please take 1 dose of prednisone tonight (01/18) followed by a taper as indicated and medication instructions.
Prescription for outpatient PT/OT provided.
Referrals:
NAOMI NEGRON DO [Family Provider, [facility]]
Prescriptions:
New
prednisone 10 mg Tablet
See Rx Instructions .ROUTE .COMPLEX Qty: 31 0RF
Rx Instructions:
01/18 40 mg x1 dose evening
Starting 01/19:
40 mg daily x3 days, 30 mg daily x3 days,
20 mg daily x3 days, 10 mg daily x3 days.
cefdinir 300 mg capsule
300 mg PO BID Qty: 8 0RF
doxycycline hyclate 100 mg capsule
100 mg PO BID Qty: 8 0RF
(DME) PT/OT prescription
See Rx Instructions .Route .MEDSUPPLY Qty: 1 0RF
Rx Instructions:
Dx: ambulatory disfunction
PT/OT. Please evaluate and treat
Continued
therapeutic multivitamin Tablet
1 tab PO DAILY
mirtazapine 7.5 mg Tablet
3.75 mg PO HS
Discharge Orders:
Discharge Patient (As Directed); Ordered 01/18/25
Ordered By: Fidelina Jama
Discharge Date and Time
Print Language: LATVIAN
== END 2025-01-18 14:07 | disposition home or self-care (01) | DRG 190 ==
LOC: 3 WEST ACU 14:55
PROVIDERS: Clinical Nurse Specialist Family Health; Registered Nurse; ADMITTING PHYSICIAN Hospitalist; ATTENDING PHYSICIAN Hospitalist; EMERGENCY PHYSICIAN Student in an Organized Health Care Education/Training Program; FAMILY PHYSICIAN Family Medicine
DX: J44.1 Chronic obstructive pulmonary disease with (acute) exacerbation (principal); A41.9 Sepsis, unspecified organism; J18.9 Pneumonia, unspecified organism; R65.20 Severe sepsis without septic shock; F02.84 Dementia in other diseases classified elsewhere, unspecified severity, with anxiety; N17.9 Acute kidney failure, unspecified; J98.11 Atelectasis; J47.0 Bronchiectasis with acute lower respiratory infection; E44.0 Moderate protein-calorie malnutrition; Z68.1 Body mass index [BMI] 19.9 or less, adult; R64 Cachexia; D63.8 Anemia in other chronic diseases classified elsewhere; R09.02 Hypoxemia; J44.0 Chronic obstructive pulmonary disease with (acute) lower respiratory infection; I35.8 Other nonrheumatic aortic valve disorders; K44.9 Diaphragmatic hernia without obstruction or gangrene; I10 Essential (primary) hypertension; Z90.49 Acquired absence of other specified parts of digestive tract; E78.00 Pure hypercholesterolemia, unspecified; G30.9 Alzheimer's disease, unspecified; Z87.891 Personal history of nicotine dependence; Z90.710 Acquired absence of both cervix and uterus; Z11.52 Encounter for screening for COVID-19; E55.9 Vitamin D deficiency, unspecified
CPT/HCPCS: 70450; 71046; 71250; 80048; 80053; 81003; 81015; 82805; 82962; 83880; 85025; 87086; 87502; 87811; 93005; 94640; 96361; 96374; 97116; 97167; 97530; 99285